=== PATIENT | male | born 1945 | race Caucasian/White ===

== ENCOUNTER 2021-05-21 11:34 | Observation (INO) ==
[2021-05-21 11:50] VITALS: BMI 22.4
[2021-05-21] MEDS ORDERED: NS 1000 ML 1,000 ML IV ONE (12:18)
--- NOTE | 2021-05-21 12:18 | DR.GENAD ---
HPI Time Seen Time Seen by Provider: 05/21/21 12:07 Complaint/Symptoms Chief Complaint Doctors Comments: 75 y/o male not doing well over the past few weeks. Started with lumps in his neck. Had a CT thru his PCP, Dr. Wise, being referred to ENT for biopsy. Developed LLE numbness 2 weeks ago, has persisted. Had a CT of the head for that, no results known by pt. Now with RLE pain, for several days. + sharp, constant, does not radiate. Worse with moving, ambulation. LLE numbness persists. Having difficulty in ambulation. + low back pain. Denies bowel or bladder incontinence. Has had dramatic weight loss over the past month. + smoker. Nurses notes reviewed Nurses Notes Review: Yes Source History Provided: Patient and Family Member Mode of Arrival Mode of Arrival: Ambulatory PMH PMH Past Surgical History: Yes ROS Review of Systems Constitutional: Weakness, Loss of Appetite and Other (weight loss) Eyes: No Symptoms Reported ENTM: No Symptoms Reported Respiratoy: Non-Productive Cough; negative Short of Breath Cardiovascular: No Symptoms Reported Gastrointestinal/Abdominal: No Symptoms Reported Genitourinary: No Symptoms Reported Neurological: Paresthesia (LLE) and Weakness (both lower exts) Musculoskeletal: Back Pain, Right and Leg Integumentary: No Symptoms Reported Hematologic/Lymphatic: No Symptoms Reported Endocrine: No Symptoms Reported Psychiatric: No Symptoms Reported All Other Systems: Reviewed and Negative PE Vital Signs Vitals: Temperature 97.6 F Pulse Rate 76 Respiratory Rate 22 Blood Pressure 122/57 O2 Sat by Pulse Oximetry 98 General Limitations: No Limitations General Appearance: Alert and In No Apparent Distress Head Head Exam: Normal Inspection, Atraumatic and Normocephalic Eyes Eye exam: Normal Appearance ENT ENT Exam: Normal Exam Neck Neck Exam: Other (+ several tender nodules of anterior neck, right > left) Chest Chest Inspection: Normal Inspection Respiratory Respiratory Exam: Normal Lung Sounds Bilat; negative Accessory Muscle Use and Respiratory Distress Respiratory Exam: Bilateral: Clear to Auscultation Cardiovascular Cardiovascular Exam: Regular Rate, Normal Rhythm and Normal Heart Sounds Abdominal Exam Abdominal Exam: Normal Inspection, Normal Bowel Sounds and Soft; negative Tenderness Extremities Extremities Exam: Normal Inspection; negative Edema Back Back Exam: Normal Inspection and Vertebral Tenderness (lumbar region) Neurologic Neurological Exam: Alert, Oriented X3, CN II-XII Intact and Other (+ bilateral lower ext weakness. Can lift off bed, maintain off bed with some drift. Decreased ROM of bilateral ankles/toes. + pulses intact. Decreased tactile sensation of LLE ) Psychiatric Psychiatric Exam: Normal Affect Skin Skin Exam: Warm and Dry MDM Differential Diagnosis Differential Diagnosis: metastatic ca, degenerative disc disease, spinal stenosis, electrolyte abn COURSE Treatment Treatment: 75 y/o male worsening over past several weeks. Reportedly has neck masses that need biopsy. Then numbness of LLE, then pain of RLE, + difficulty walking. W/u initiated. 1502 - Ct chest with contrast shows multiple enlarged lymph nodes, R suprahilar mass, R > L pleural effusion. CT lumbar without obvious mets, + severe degenerative changes. Discussed with his attending, Dr Wise. Will admit the pt, start steroid therapy. ROR Labs Reviewed Laboratory Results Reviewed?: Yes Result Diagrams: 05/21/21 12:05/21/21 12: Laboratory: WBC 8.9 X10^3/uL (3.6-10.0) 05/21/21 12: RBC 2.69 X10^6/uL (4.7-6.0) L 05/21/21 12: Hgb 8.6 g/dL (13.5-18.0) L 05/21/21 12: Hct 25.4 % (42.0-54.0) L 05/21/21 12: MCV 94.3 fL (80.0-100.0) 05/21/21 12: MCH 32.0 pg (27.0-34.0) 05/21/21 12: MCHC 34.0 g/dL (33.0-35.0) 05/21/21 12: RDW 16.7 % (11.6-16.5) H 05/21/21 12: Plt Count 316 X10^3/uL (150.0-450.0) 05/21/21 12: MPV 7.9 fL (7.4-11.0) 05/21/21 12: Neut % (Auto) 74.7 % (42.0-75.0) 05/21/21 12: Lymph % (Auto) 10.0 % (21.0-51.0) L 05/21/21 12:27 [place] % (Auto) 11.9 % (0.0-13.0) 05/21/21 12:27 Eos % (Auto) 2.3 % (0.9-2.9) 05/21/21 12:27 Baso % (Auto) 1.1 % (0.2-1.0) H 05/21/21 12:27 Neut # (Auto) 6.7 x10^3/uL (2.2-4.8) H 05/21/21 12:27 Lymph # (Auto) 0.9 X10^3/uL (1.3-2.9) L 05/21/21 12:27 [place] # (Auto) 1.1 x10^3/uL (0.3-0.8) H 05/21/21 12:27 Eos # (Auto) 0.2 x10^3/uL (0.0-0.2) 05/21/21 12:27 Baso # (Auto) 0.1 X10^3/uL (0.0-0.1) 05/21/21 12:27 Absolute Nucleated RBC 0.0 /100WBC 05/21/21 12:27 Sodium 135 mmol/L (136-145) L 05/21/21 12:27 Corrected Sodium TNP 05/21/21 12:27 Potassium 4.3 mmol/L (3.5-5.1) 05/21/21 12:27 Chloride 102 mmol/L (98-107) 05/21/21 12:27 Carbon Dioxide 24.4 mmol/L (21-32) 05/21/21 12:27 BUN 30 mg/dL (7-18) H 05/21/21 12:27 Creatinine 0.95 mg/dL (0.70-1.30) 05/21/21 12:27 Est GFR (MDRD) Af Amer > 60 (>60) 05/21/21 12:27 Est GFR (MDRD) Non-Af > 60 (>60) 05/21/21 12:27 Glucose 103 mg/dL (65-99) H 05/21/21 12:27 Calcium 8.8 mg/dL (8.5-10.1) 05/21/21 12:27 Corrected Calcium 9.8 mg/dL (8.5-10.1) 05/21/21 12:27 Total Bilirubin 0.60 mg/dL (0.2-1.0) 05/21/21 12:27 AST 17 Units/L (15-37) 05/21/21 12:27 ALT 8 Units/L (12-78) L 05/21/21 12:27 Alkaline Phosphatase 51 Units/L (46-116) 05/21/21 12:27 Creatine Kinase 41 Units/L (39-308) 05/21/21 12:27 CK-MB (CK-2) < 1.0 ng/mL (0-4.0) 05/21/21 12:27 CK/CKMB % Calc 2.4 % (<4) 05/21/21 12:27 Troponin I 0.04 ng/mL (0-1.5) 05/21/21 12:27 Total Protein 7.2 g/dL (6.4-8.2) 05/21/21 12: Albumin 2.8 g/dL (3.4-5.0) L 05/21/21 12:27 Globulin 4.4 g/dL (2.5-4.5) 05/21/21 12:27 Albumin/Globulin Ratio 0.6 Ratio (1.1-2.1) L 05/21/21 12: Lipase 49 Units/L (73-393) L 05/21/21 12:27 Other Results Comments: + anemia 8.6 XRAY XRAY Interpreted by: Both X-ray Results: CXR - with increase dmarking of the R side concerning for neoplasm, + R pleural effusion. CT chest with multiple enlarged nodes, R suprahilar mass, pleural effusions, R > L. Opioid Opioid Risk Tool Total: 0 Total Score Risk Category: Low Risk Copyright: Burt BURK predicting aberrant behaviors Diagnosis Discharge Problem: Metastatic lung carcinoma Qualifiers: Laterality: right Qualified Code(s): C78.01 - Secondary malignant neoplasm of right lung
[2021-05-21] MEDS ORDERED: NS 1000 ML 1,000 ML ONE (12:22)
[2021-05-21 12:47] LABS: BASOPHILS # (AUTO) 0.1 X10^3/uL (0.0-0.1); BASOPHILS % (AUTO) 1.1 % (0.2-1.0); EOSINOPHILS # (AUTO) 0.2 x10^3/uL (0.0-0.2); EOSINOPHILS % (AUTO) 2.3 % (0.9-2.9); HEMATOCRIT 25.4 % (42.0-54.0); HEMOGLOBIN 8.6 g/dL (13.5-18.0); LYMPHOCYTES # (AUTO) 0.9 X10^3/uL (1.3-2.9); MEAN CORPUSCULAR VOLUME 94.3 fL (80.0-100.0); MEAN PLATELET VOLUME 7.9 fL (7.4-11.0); MONOCYTES # (AUTO) 1.1 x10^3/uL (0.3-0.8); MONOCYTES % (AUTO) 11.9 % (0.0-13.0); NEUTROPHILS # (AUTO) 6.7 x10^3/uL (2.2-4.8); NEUTROPHILS % (AUTO) 74.7 % (42.0-75.0); PLATELET COUNT 316 X10^3/uL (150.0-450.0); RED BLOOD COUNT 2.69 X10^6/uL (4.7-6.0); RED CELL DISTRIBUTION WIDTH 16.7 % (11.6-16.5); WHITE BLOOD COUNT 8.9 X10^3/uL (3.6-10.0)
[2021-05-21 13:12] LABS: ALANINE AMINOTRANSFERASE 8 Units/L (12-78); ALBUMIN 2.8 g/dL (3.4-5.0); ALKALINE PHOSPHATASE 51 Units/L (46-116); ASPARTATE AMINO TRANSFERASE 17 Units/L (15-37); BLOOD UREA NITROGEN 30 mg/dL (7-18); CALCIUM 8.8 mg/dL (8.5-10.1); CARBON DIOXIDE 24.4 mmol/L (21-32); CHLORIDE 102 mmol/L (98-107); CKMB % 2.4 % (<4); COR CA(FOR HYPOALB) 9.8 mg/dL (8.5-10.1); CREATINE KINASE 41 Units/L (39-308); CREATINE KINASE MB < 1.0 ng/mL (0-4.0); CREATININE 0.95 mg/dL (0.70-1.30); LIPASE 49 Units/L (73-393); SODIUM 135 mmol/L (136-145); TOTAL PROTEIN 7.2 g/dL (6.4-8.2); TROPONIN I 0.04 ng/mL (0-1.5); eGFR NON BLACK RACES > 60 (>60)
[2021-05-21] MEDS ORDERED: NS 100 ML IV 100 ML ONE (13:30)
[2021-05-21] MEDS ORDERED: SOLU-Medrol 40 MG VIAL IVP ONE (14:43)
--- NOTE | 2021-05-21 14:52 | CT ---
HISTORYSevere low back pain with numbnessSTUDYCT lumbar spine without contrastCOMPARISONNoneNoncontrast CT of the lumbar spine was performed in the axial plane and reconstructed with multiplanar reformats.FINDINGSThere are bibasilar pleural effusions, moderate on the right and small on the left. Aortic and iliac atherosclerotic calcifications are observed. The patient is status post aorto bi-iliac graft placement. Atherosclerotic renal vascular calcifications are also noted. No perivertebral or retroperitoneal fluid collections are identified. Paraspinal muscles are adequately developed. There is mild dextroscoliosis of the thoracolumbar spine which is centered at the level of L1-L2. There is associated advanced degenerative disc disease and endplate spondylosis at this point of abnormal curvature; disc space narrowing with vacuum disc defect is observed at T11-T12, T12-L1, L1-L2 and L2-L3 levels. In the sagittal plane, there is marginal grade 1 retrolisthesis of L2 on L3. Degenerative endplate sclerosis is demonstrated at L2-L3 where there is severe disc space narrowing. The vertebral body heights are adequately maintained. There is no evidence of an acute fracture or pars defect. Additional degenerative findings consist of multilevel facet hypertrophy the coming progressively more conspicuous in the caudal direction. Evaluation of the spinal canal is limited on a noncontrast CT. At L2-3 level, posterior endplate ridging contributes to relative narrowing of the spinal canal. Discogenic degenerative changes with bulging discs and facet hypertrophy contribute to varying degrees of multilevel neural foraminal compromise.IMPRESSIONScoliotic curvature of the thoracolumbar spine affiliated with advanced multilevel degenerative disc disease, spondylosis and facet hypertrophy. See above for complete details.Discogenic degenerative changes and facet hypertrophy contribute to varying degrees of multilevel bilateral neural foraminal compromise, with localized spinal stenosis at L2-3.No acute fracture or posttraumatic subluxation of the lumbar spineBilateral pleural effusions, right greater than left.Electronically signed by: OLGA MCKEON (May 21, 2021 14:50:40)
[2021-05-21] MEDS ORDERED: SOLU-Medrol 40 MG VIAL ONE ×2 (14:56→20:09)
--- NOTE | 2021-05-21 15:00 | CT ---
HISTORYDYSPNEA ON EXERTIONSTUDYCT chest with contrastCOMPARISONNo recent comparison studiesTECHNIQUEAxial CT was performed from the thoracic inlet to the upper abdomen with IV contrast. The axial sequences are reconstructed with multiplaner reformats.FINDINGSThere is multi station lymphadenopathy associated with the lower jugular chain and supraclavicular lymph node stations. This is contiguous with bulky lymphadenopathy associated with the mediastinum and hilar regions of the chest. The axillary regions are spared. For example, confluent sub carinal lymphadenopathy measures at least 4.4 x 2.8 cm. Right hilar lymph node measures 2.8 x 1.7 cm. Left paratracheal lymph nodes measure 2.5 by 2 cm. Right paratracheal lymph node measures 2.3 x 2.6 cm. There is a moderate right-sided pleural effusion and a small left-sided pleural effusion. There is also a small dependent pericardial effusion. The heart size is average. There is evidence of coronary atherosclerosis. Thoracic aorta caliber is average. Atherosclerotic calcifications are also demonstrated within the thoracic aorta. There are no central filling defects of the main, lobar or proximal segmental pulmonary artery branches, although the study was not protocol for thromboembolism evaluation. Endobronchial secretions are demonstrated within the secondary and tertiary bronchi of the right upper lobe. There is mass effect upon the right upper lobe lobar and segmental branches related to a bryce mass in the suprahilar region, image 28, which measures approximately 2.3 x 2.7 cm. Advanced centrilobular emphysematous changes are observed. There is interseptal thickening is demonstrated within the right upper lobe. There is also interlobular septal thickening of the bilateral lung bases, right more so than left. No defined satellite nodules are identified. Subpleural scarring is demonstrated within the anterior margin of the right upper lobe. Within the upper abdomen, there also enlarged retroperitoneal/retrocrural lymph nodes in the periaortic distribution. The adrenal glands remain symmetric in morphology. The imaged portions of the liver enhances normally with no focal lesions within the field of view. Evaluation of the bony structures demonstrates no aggressive osseous lesions. There are findings of advanced multilevel degenerative disc disease and spondylosis of the lower thoracic and upper lumbar spine.IMPRESSIONBulky multi station lymphadenopathy of the lower neck, mediastinum and hilar regions, and superior retroperitoneal space. Findings are highly concerning for an underlying malignancy, such as lymphoma or metastatic disease related to central bronchogenic carcinoma, for example. These lymph nodes may be accessible to biopsy via bronchoscopy.Right hilar/suprahilar bryce masses produce mass effect upon the lobar and segmental bronchi of the right upper lobe, resulting in accumulation of endobronchial secretions within this distributionAdvanced emphysemaInterstitial congestion of the right lung more so than left lung may be due to lymphangitic carcinomatosis or asymmetric edemaModerate right-sided pleural effusion with passive atelectasis. Trace left-sided pleural effusion.Small pericardial effusion.Radiation dose reduction was achieved through individualized adjustment of kVP and/or mA, through adaptive statistical iterative reconstruction, and/or through automated tube current modulation.Electronically signed by: OLGA MCKEON (May 21, 2021 14:58:18)
--- NOTE | 2021-05-21 15:11 | RAD ---
HISTORYDIFFICULTY BREATHINGSTUDYCHEST, 1 VIEWCOMPARISONNo recent comparison studiesTECHNIQUEPortable chest x-rayFINDINGSAsymmetric interstitial prominence of the right lung is observed. There is a small to moderate right-sided pleural effusion and a small left-sided pleural effusion. The heart size is normal. There is right hilar asymmetry for which lymphadenopathy is considered.IMPRESSIONAsymmetric interstitial prominence of the right lung. Differential considerations include asymmetric edema or lymphangitic carcinomatosis.Right hilar asymmetry for which central bronchogenic or bryce mass must be considered. Follow-up CT is suggestedBilateral pleural effusions, right greater than leftEmphysematous changes suspected within the lung apices.Electronically signed by: OLGA MCKEON (May 21, 2021 15:09:44)
[2021-05-21] MEDS ORDERED: PERCOCET TAB 5/325 MG ONE (16:28)
[2021-05-21] MEDS: PERCOCET TAB 5/325 MG PO PRN ×2 (16:30→23:33)
--- NOTE | 2021-05-21 19:38 | DR.H&P ---
H&P - History & Physical for Day of: H&P Date: 05/21/21 - Chief Complaint Chief Complaint: LOWER EXTREMITY WEAKNESS, PAIN, SHORTNESS OF BREATH, DIFFICULTY AMBULATING, LOWER BACK PAIN - History of Present Illness History of Present Illness: IS A 75 YEAR OLD PATIENT OF OURS. HE PRESENTED TO THE ER WITH COMPALINTS OF GENERALIZED WEAKNESS, SHORTNESS OF BREATH, LLE NUMBNESS, RLE PAIN, DIFFICULTY AMBULATING, AND LOWER BACK PAIN. HE HAS HAD DRAMATIC WEIGHT LOSS OVER THE PAST MONTH. HE DENIES BOWEL OR BLADDER INCONTINENCE. PATIENT REPORTS FINDING LUMPS IN HIS NECK ABOUT A MONTH AGO. PAIN TO RLE IS DESCRIBED CONSTANT, SHARP, AND IS RATED A 6/10. PATIENT DOES ADMIT TO SMOKING DAILY. HE HAD A SOFT TISSUE NECK CT WHICH REVEALED LEFT SUPRACLAVICULAR LYMPHADENOPATHY, SUGGESTING MALIGNANCY, POSSIBLY LYMPHOMA. HE ALSO HAD A BRAIN CT ON 05/15 DUE TO LOWER EXTREMITY NUMBNESS. IT REVEALED: Indeterminate rounded hypodensities in the left frontal lobe for which underlying masses cannot be excluded. MRI with and without contrast recommended for further evaluation. Cerebral volume loss and nonspecific white matter changes likely due to microvascular disease. No intracranial hemorrhage. PATIENT HAS BEEN REFERRED TO ENT FOR BIOPSY OF NODULES IN NECK, BUT HAS NOT SEEN THEM YET. ON ARRIVAL TO THE ER, VITALS WERE 97.6-84-22-97%-120/57. LABS WERE OBTAINED. ABNORMAL LAB VALUES INCLUDE THE FOLLOWING: RBC 2.69, HGB 8.6, HCT 25.4, SODIUM 135, BUN 30, GLUCOSE 103, ALT 8, ALBUMIN 2.8, LIPASE 49. COVID, INFLUENZA, AND RSV NEGATIVE. A CHEST XRAY WAS OBTAINED AND REVEALED: Asymmetric interstitial prominence of the right lung. Differential considerations include asymmetric edema or lymphangitic carcinomatosis. Right hilar asymmetry for which central bronchogenic or bryce mass must be considered. Follow-up CT IS suggested. Bilateral pleural effusions, right greater than left. Emphysematous changes suspected within the lung apices. A CHEST CT WAS OBTAINED AND REVEALED: Bulky multi station lymphadenopathy of the lower neck, mediastinum and hilar regions, and superior retroperitoneal space. Findings are highly concerning for an underlying malignancy, such as lymphoma or metastatic disease related to central bronchogenic carcinoma, for example. These lymph nodes may be accessible to biopsy via bronchoscopy. Right hilar/suprahilar bryce masses produce mass effect upon the lobar and segmental bronchi of the right upper lobe, resulting in accumulation of endobronchial secretions within this distribution. Advanced emphysema. Interstitial congestion of the right lung more so than left lung may be due to lymphangitic carcinomatosis or asymmetric edema. Moderate right-sided pleural effusion with passive atelectasis. Trace left-sided pleural effusion. Small pericardial effusion. A LUMBAR SPINE CT WAS OBTAINED AND REVEALED: Sc oliotic curvature of the thoracolumbar spine affiliated with advanced multilevel degenerative disc disease, spondylosis and facet hypertrophy. Discogenic degenerative changes and facet hypertrophy contribute to varying degrees of multilevel bilateral neural foraminal compromise, with localized spinal stenosis at L2-3. No acute fracture or posttraumatic subluxation of the lumbar spine. Bilateral pleural effusions, right greater than left. IN THE ER, HE WAS GIVEN A NORMAL SALINE BOLUS, SOLU-MEDROL 80MG IV X 1 DOSE. HE WAS ADMITTED TO THE HOSPITAL FOR FURTHER EVALUATION AND TREATMENT OF METASTATIC LUNG CANCER, LOWER EXTREMITY WEAKNESS, ANEMIA. HE WAS STARTED ON SOLU-MEDROL 80MG IV Q8H, PERCOCET 5/325 1.5 TAB PO TID PRN, PULMICORT NEBS BID, AND HIS HOME MEDICATIONS OF ASPIRIN, PLAVIX, NEURONTIN, LOPRESSOR, ZOCOR, FLOMAX, AND EFFEXOR WERE RESUMED. WE WILL FOLLOW UP WITH AM LABS AND HAVE PT EVALUATE HIM IN THE MORNING. TIME SPENT ON CLINICAL ASSESSMENT, REVIEWING LABS AND IMAGING, DECISION MAKING, AND DOCUMENTATION GREATER THAN 75 MINUTES. - Past Medical History Past Medical History: COPD, Dyslipidemia, Hypertension - Past Surgical History Surgical History: Angioplasty/Stents, Other - Family History Family Medical History: Coronary Artery Disease - Social History Does patient currently use any type of tobacco product: Yes Have you used tobacco products in the last 12 months: Yes Type of Tobacco Use: Cigarettes Does any household member use tobacco: No Alcohol Use: Occasionally Drug Use: None - Medications Home Medications: No Known Drug Allergies Allergy (Verified 05/21/21 14:27) CONTINUE taking the following medications ascorbic acid (vitamin C) [Vitamin C] 500 mg PO DAILY 05/21/21 [History] aspirin 81 mg PO DAILY 05/21/21 [History] budesonide-formoterol [Symbicort] 1 inh INHALATION BID 05/21/21 [History] cholecalciferol (vitamin D3) [Vitamin D3] 25 mcg PO DAILY 05/21/21 [History] clopidogrel 75 mg PO DAILY 05/21/21 [History] coenzyme Q10 [Co Q-10] 400 mg PO DAILY 05/21/21 [History] fluticasone propionate 1 spray INTRANASAL BID 05/21/21 [History] gabapentin 300 mg PO HS 05/21/21 [History] metoprolol tartrate 25 mg PO BID 05/21/21 [History] omega 6-mxr-dro-fish oil [Fish Oil] 1 cap PO DAILY 05/21/21 [History] oxycodone-acetaminophen 1 tab PO TID PRN 05/21/21 [History] simvastatin 40 mg PO HS 05/21/21 [History] tamsulosin 0.4 mg PO HS 05/21/21 [History] tramadol 50 mg PO Q6H PRN 05/21/21 [History] venlafaxine 75 mg PO DAILY 05/21/21 [History] vitamin [id number]-[id number] acid 1 phuc SUBLINGUAL DAILY 05/21/21 [History] - Review of Systems Constitutional: Weakness Eyes: No Symptoms Reported Respiratory: Shortness of Breath Cardiovascular: No Symptoms Reported Gastrointestinal: No Symptoms Reported Genitourinary: No Symptoms Reported Musculoskeletal: See HPI, Back Pain, Leg Pain Skin: No Symptoms Reported Neurological: Weakness - Physical Exam Vital Signs: Temperature 98.2 F Pulse Rate [Left Radial] 75 Pulse Rate 66 Respiratory Rate 20 Blood Pressure [Left Arm] 147/70 Blood Pressure 137/65 O2 Sat by Pulse Oximetry 97 Oriented: Normal Eyes: Normal Ear: Normal Nose: Normal Throat: Normal Respiratory: Diminished Throughout Cardiovascular: Normal : Normal Auscultation: Bowel Sounds: Normal Palpation: Normal Tenderness: Normal Skin: Normal Musculoskeletal: Right, Left, Leg, Back:Lumbar, Tender, Sensory Deficit Psychiatric: Normal Mood Description: Calm Affect: Normal Speech Pattern: Clear - Assessment/Plan (1) Metastatic lung carcinoma Qualifiers: Laterality: right Qualified Code(s): C78.01 - Secondary malignant neoplasm of right lung Status: Acute Plan: ADMIT, SOLU-MEDROL 80MG IV Q8H, PERCOCET 5/325 1.5 TAB PO TID PRN, PULMICORT NEBS BID, AND HIS HOME MEDICATIONS OF ASPIRIN, PLAVIX, NEURONTIN, LOPRESSOR, ZOCOR, FLOMAX, AND EFFEXOR WERE RESUMED. (2) Anemia Qualifiers: Anemia type: unspecified type Qualified Code(s): D64.9 - Anemia, unspecifi ed Status: Acute (3) Lower back pain Qualifiers: Chronicity: acute Back pain laterality: unspecified Sciatica presence: without sciatica Qualified Code(s): M54.5 - Low back pain Status: Acute (4) Lower extremity weakness Qualifiers: Laterality: bilateral Qualified Code(s): R29.898 - Other symptoms and signs involving the musculoskeletal system Status: Acute - Allergies Allergies/Adverse Reactions: Allergies Allergy/AdvReac Type Severity Reaction Status Date / Time No Known Drug Allergies Allergy Verified 05/21/21 14:27
[2021-05-21] MEDS ORDERED: PULMICORT NEB TX 0.5 MG NEB ONE (19:52)
[2021-05-21] MEDS: NEURONTIN CAP 300 MG PO SCH (20:41)
[2021-05-21] MEDS: LOPRESSOR TAB 25 MG PO SCH (20:41)
[2021-05-21] MEDS: ZOCOR TAB 40 MG PO SCH (20:41)
[2021-05-21] MEDS: FLOMAX PO SCH (20:41)
[2021-05-21] MEDS: SOLU-Medrol 40 MG VIAL IVP SCH (21:00)
[2021-05-21] MEDS ORDERED: SYMBICORT INH 160/4.5 mcg IN SCH (21:00)
[2021-05-21] MEDS: PULMICORT NEB TX 0.5 MG NEB SCH (21:16)
[2021-05-22] MEDS: SOLU-Medrol 40 MG VIAL IVP SCH ×3 (05:00→21:00)
[2021-05-22 06:26] LABS: BASOPHILS % (AUTO) 0.2 % (0.2-1.0); HEMATOCRIT 26.2 % (42.0-54.0); HEMOGLOBIN 8.9 g/dL (13.5-18.0); LYMPHOCYTES # (AUTO) 0.4 X10^3/uL (1.3-2.9); LYMPHOCYTES % (AUTO) 7.7 % (21.0-51.0); MEAN CORPUSCULAR HEMOGLOBIN 32.6 pg (27.0-34.0); MEAN CORPUSCULAR HGB CONC 34.1 g/dL (33.0-35.0); MEAN CORPUSCULAR VOLUME 95.8 fL (80.0-100.0); MEAN PLATELET VOLUME 8.4 fL (7.4-11.0); MONOCYTES # (AUTO) 0.2 x10^3/uL (0.3-0.8); MONOCYTES % (AUTO) 3.3 % (0.0-13.0); NEUTROPHILS # (AUTO) 4.7 x10^3/uL (2.2-4.8); NEUTROPHILS % (AUTO) 88.8 % (42.0-75.0); PLATELET COUNT 310 X10^3/uL (150.0-450.0); RED BLOOD COUNT 2.73 X10^6/uL (4.7-6.0); RED CELL DISTRIBUTION WIDTH 16.4 % (11.6-16.5); WHITE BLOOD COUNT 5.2 X10^3/uL (3.6-10.0)
[2021-05-22 06:40] LABS: ALANINE AMINOTRANSFERASE 8 Units/L (12-78); ALBUMIN 2.6 g/dL (3.4-5.0); ALKALINE PHOSPHATASE 51 Units/L (46-116); ASPARTATE AMINO TRANSFERASE 17 Units/L (15-37); BLOOD UREA NITROGEN 31 mg/dL (7-18); CALCIUM 8.9 mg/dL (8.5-10.1); CARBON DIOXIDE 22.8 mmol/L (21-32); CHLORIDE 105 mmol/L (98-107); COR NA(FOR HYPERGLY) 140 mmol/L (136-145); CREATININE 1.01 mg/dL (0.70-1.30); SODIUM 139 mmol/L (136-145); TOTAL PROTEIN 7.2 g/dL (6.4-8.2); eGFR NON BLACK RACES > 60 (>60)
[2021-05-22] MEDS: PULMICORT NEB TX 0.5 MG NEB SCH ×2 (08:40→21:34)
[2021-05-22] MEDS: PLAVIX PO SCH (09:01)
[2021-05-22] MEDS: ASPIRIN 81 MG CHEWTAB PO SCH (09:01)
[2021-05-22] MEDS: EFFEXOR XR 75 MG CAP 24-HR PO SCH (09:01)
[2021-05-22] MEDS: LOPRESSOR TAB 25 MG PO SCH ×2 (09:02→20:50)
[2021-05-22] MEDS: LEVAQUIN PREMIX IV 500 MG 500 MG/100 ML BAG IV SCH (12:37)
--- NOTE | 2021-05-22 16:18 | MRI ---
HISTORYMETASTATIC DISEASE; 15CC MULTIHANCESTUDYBRAIN W W/O CONCOMPARISONCT head dated 05/15/2021.TECHNIQUEMultiplanar multi sequences images through the brain were performed with and without intravenousFINDINGSThe ventricles are symmetric. There are punctate areas of high signal on diffusion along the left precentral gyrus and in the left frontal lobe and tiny in the cortex of the left temporal occipital region at the watershed zone. These areas demonstrate no significant low signal on ADC map and it could correspond with more than 10 days small infarcts. There is high signal on diffusion.FLAIR images demonstrate mild high signal high signal on FLAIR in the previously described areas. There is no evidence of white matter disease. There is minimal periventricular and pontine high signal. No sellar masses. The cervicocranial junction is unremarkable, no nasopharyngeal masses. The mastoid cells and included paranasal sinuses are clear. No orbital masses. The main arterial and venous flow voids are present, the temporomandibular condyles demonstrate mild sclerosis in the left. No abnormal signal in the skullbase and the calvarium.After the administration of contrast, there is no evidence of abnormal intraparenchymal or leptomeningeal enhancement. There is symmetry of the cavernous sinus. No evidence of metastatic disease.There is no abnormal intraparenchymal susceptibility artifact.IMPRESSIONSmall areas of high signal on diffusion in the left precentral gyrus, left posterior watershed zone and in the left frontal lobe white matter could represent more than 10 days small infarcts. It could be related proximal decreased flow infarcts, correlation with bilateral carotid ultrasound is recommended to rule out stenosis in the left ICANo evidence of metastatic disease.Electronically signed by: Leatha Carrillo (May 22, 2021 16:16:12)
[2021-05-22] MEDS: PERCOCET TAB 5/325 MG PO PRN (19:25)
[2021-05-22] MEDS: ZOCOR TAB 40 MG PO SCH (20:50)
[2021-05-22] MEDS: FLOMAX PO SCH (20:50)
[2021-05-22] MEDS: NEURONTIN CAP 300 MG PO SCH (20:50)
[2021-05-23] MEDS: PERCOCET TAB 5/325 MG PO PRN ×2 (04:56→19:39)
[2021-05-23] MEDS: SOLU-Medrol 40 MG VIAL IVP SCH ×3 (05:00→21:18)
[2021-05-23 06:23] LABS: BASOPHILS % (AUTO) 0.1 % (0.2-1.0); HEMATOCRIT 24.4 % (42.0-54.0); HEMOGLOBIN 8.2 g/dL (13.5-18.0); LYMPHOCYTES # (AUTO) 0.5 X10^3/uL (1.3-2.9); LYMPHOCYTES % (AUTO) 4.2 % (21.0-51.0); MEAN CORPUSCULAR HGB CONC 33.6 g/dL (33.0-35.0); MEAN CORPUSCULAR VOLUME 95.3 fL (80.0-100.0); MEAN PLATELET VOLUME 8.1 fL (7.4-11.0); MONOCYTES # (AUTO) 0.6 x10^3/uL (0.3-0.8); MONOCYTES % (AUTO) 5.4 % (0.0-13.0); NEUTROPHILS # (AUTO) 10.2 x10^3/uL (2.2-4.8); NEUTROPHILS % (AUTO) 90.3 % (42.0-75.0); PLATELET COUNT 337 X10^3/uL (150.0-450.0); RED BLOOD COUNT 2.56 X10^6/uL (4.7-6.0); RED CELL DISTRIBUTION WIDTH 16.4 % (11.6-16.5); WHITE BLOOD COUNT 11.3 X10^3/uL (3.6-10.0)
[2021-05-23 06:47] LABS: ALANINE AMINOTRANSFERASE 10 Units/L (12-78); ALBUMIN 2.7 g/dL (3.4-5.0); ALKALINE PHOSPHATASE 46 Units/L (46-116); ASPARTATE AMINO TRANSFERASE 18 Units/L (15-37); BLOOD UREA NITROGEN 41 mg/dL (7-18); CALCIUM 8.9 mg/dL (8.5-10.1); CARBON DIOXIDE 21.1 mmol/L (21-32); CHLORIDE 105 mmol/L (98-107); COR CA(FOR HYPOALB) 9.9 mg/dL (8.5-10.1); COR NA(FOR HYPERGLY) 139 mmol/L (136-145); CREATININE 0.88 mg/dL (0.70-1.30); SODIUM 138 mmol/L (136-145); TOTAL PROTEIN 6.8 g/dL (6.4-8.2); eGFR NON BLACK RACES > 60 (>60)
[2021-05-23 07:27] LABS: METAMYELOCYTES % 3; MYELOCYTES % 1; PLATELET MORPHOLOGY COMMENT NORMAL (NORMAL)
[2021-05-23] MEDS: LOPRESSOR TAB 25 MG PO SCH ×2 (08:08→21:19)
[2021-05-23] MEDS: LEVAQUIN PREMIX IV 500 MG 500 MG/100 ML BAG IV SCH (08:12)
[2021-05-23] MEDS: PLAVIX PO SCH (08:12)
[2021-05-23] MEDS: ASPIRIN 81 MG CHEWTAB PO SCH (08:12)
[2021-05-23] MEDS: EFFEXOR XR 75 MG CAP 24-HR PO SCH (08:12)
[2021-05-23] MEDS: PULMICORT NEB TX 0.5 MG NEB SCH ×2 (10:15→20:51)
[2021-05-23] MEDS ORDERED: ULTRAM PO PRN (10:56)
[2021-05-23] MEDS ORDERED: COENZYME Q10 400 MG PO SCH (11:00)
[2021-05-23] MEDS: FLONASE NASAL SPRAY ENOSTRIL SCH ×2 (12:16→21:20)
[2021-05-23] MEDS: VITAMIN C PO SCH (12:17)
[2021-05-23] MEDS: VITAMIN D3 25 mcg (1,000 UNITS) PO SCH (12:17)
[2021-05-23] MEDS: LOVAZA PO SCH (12:17)
--- NOTE | 2021-05-23 12:51 | PCM.PROG ---
Progress Note - Progress Note for Day of Date of Exam: 05/22/21 - Subjective Subjective: WAS ADMITTED FOR TREATMENT OF METASTATIC LUNG CARCINOMA, ANEMIA, INTRACTABLE BACK PAIN, AND LOWER EXTREMITY WEAKNESS. METASTATIC DISEASE IS NEWLY DIAGNOSED. PATIENT HAS NOT YET SEEN ONCOLOGY OR THE ENT FOR NODULES FOUND IN THE NECK. TODAY, HE IS ALERT AND ORIENTED, LYING IN BED ON MORNING ROUNDS. HE CONTINUES WITH COMPLAINTS OF SHORTNESS OF BREATH AND WEAKNESS. HE DOES ADMIT TO SLIGHT IMPROVEMENT IN SYMPTOMS SINCE YESTERDAY. ON EXAMINATION, HEART IS REGULAR IN RATE AND RHYTHM. BILATERAL LUNGS ARE NOTED TO HAVE DIMINISHED LUNG SOUNDS THROUGHOUT. ABDOMEN IS ROUND, SOFT, AND NON-TENDER WITH NORMAL BOWEL SOUNDS NOTED IN ALL QUADRANTS. HIS VITALS THIS MORNING ARE: 97.6-77-22-94%-114/61. LABS WERE OBTAINED. ABNORMAL LAB VALUES INCLUDE THE FOLLOWING: RBC 2.73, HGB 8.9, HCT 26.2, BUN 31, GLUCOSE 156, ALT 8, ALBUMIN 2.6, GLOBULIN 4.6. HE IS CURRENTLY RECEIVING SOLU-MEDROL 80MG IV Q8H, PERCOCET 5/325 1.5 TAB PO TID PRN, PULMICORT NEBS BID, AND HIS HOME MEDICATIONS OF ASPIRIN, PLAVIX, NEURONTIN, LOPRESSOR, ZOCOR, FLOMAX, AND EFFEXOR WERE RESUMED. TODAY, WE WILL OBTAIN A BRAIN MRI WITH AND WITHOUT CONTRAST TO RULE OUT METASTATIC DISEASE OF THE BRAIN. WE WILL ALSO ADD LEVAQUIN TO COVER FOR ANY INFECTIOUS PROCESS. OTHERWISE, WE PLAN TO FOLLOW UP WITH AM LABS AND CONTINUE TO MONITOR. WE WILL SET UP AN OUTPATIENT APPOINTMENT WITH , ONCOLOGIST. TIME SPENT ON CLINICAL ASSESSMENT, REVIEWING LABS AND IMAGING, DECISION MAKING, AND DOCUMENTATION GREATER THAN 45 MINUTES. - Past Medical Family Social History Past Med/Fam/Surg Hx: No changes since H&P Allergies: Allergies No Known Drug Allergies Allergy (Verified 05/21/21 14:27) - Review of Systems ROS: No change since H&P - Vital Signs and I&O's Vital Signs: Temperature 97.4 F Pulse Rate [Left Radial] 63 Pulse Rate 62 Respiratory Rate 20 Blood Pressure [Left Arm] 115/57 Blood Pressure 137/65 O2 Sat by Pulse Oximetry 96 Intake and Output: Intake & Output 05/21/21 05/22/21 05/23/21 05/24/21 11:59 11:59 11:59 11:59 Intake Total 2065 1633 / 1633 Balance 2065 1633 / 1633 - Physical Exam Oriented: Normal Eyes: Normal Ear: Normal Nose: Normal Throat: Normal Respiratory: Generalized, Diminished Cardiovascular: Normal : Normal Auscultation: Bowel Sounds: Normal Palpation: Normal Tenderness: Normal Skin: Normal Musculoskeletal: Right, Left, Leg, Back:Lumbar, Tender, Sensory Deficit Psychiatric: Normal Mood Description: Calm Affect: Normal Speech Pattern: Clear - Laboratory and Diagnostics Result Diagrams: 05/23/21 05:45 05/23/21 05:45 Labs: Laboratory WBC 11.3 X10^3/uL (3.6-10.0) H 05/23/21 05:45 RBC 2.56 X10^6/uL (4.7-6.0) L 05/23/21 05:45 Hgb 8.2 g/dL (13.5-18.0) L 05/23/21 05:45 Hct 24.4 % (42.0-54.0) L 05/23/21 05:45 MCV 95.3 fL (80.0-100.0) 05/23/21 05:45 MCH 32.0 pg (27.0-34.0) 05/23/21 05:45 MCHC 33.6 g/dL (33.0-35.0) 05/23/21 05:45 RDW 16.4 % (11.6-16.5) 05/23/21 05:45 Plt Count 337 X10^3/uL (150.0-450.0) 05/23/21 05:45 Plt Count Comment Adequate (ADEQUATE) 05/23/21 05:45 MPV 8.1 fL (7.4-11.0) 05/23/21 05:45 Neut % (Auto) 90.3 % (42.0-75.0) H 05/23/21 05:45 Lymph % (Auto) 4.2 % (21.0-51.0) L 05/23/21 05:45 [place] % (Auto) 5.4 % (0.0-13.0) 05/23/21 05:45 Eos % (Auto) 0.0 % (0.9-2.9) L 05/23/21 05:45 Baso % (Auto) 0.1 % (0.2-1.0) L 05/23/21 05:45 Neut # (Auto) 10.2 x10^3/uL (2.2-4.8) H 05/23/21 05:45 Lymph # (Auto) 0.5 X10^3/uL (1.3-2.9) L 05/23/21 05:45 [place] # (Auto) 0.6 x10^3/uL (0.3-0.8) 05/23/21 05:45 Eos # (Auto) 0.0 x10^3/uL (0.0-0.2) 05/23/21 05:45 Baso # (Auto) 0.0 X10^3/uL (0.0-0.1) 05/23/21 05:45 Absolute Nucleated RBC 0.2 /100WBC 05/23/21 05:45 Total Counted 100 05/23/21 05:45 Neutrophils % (Manual) 86 % (39-76) H 05/23/21 05:45 Lymphocytes % (Manual) 5 % (13-43) L 05/23/21 05:45 Monocytes % (Manual) 5 % (4-9) 05/23/21 05:45 Metamyelocytes % 3 05/23/21 05:45 Myelocytes % 1 05/23/21 05:45 Plt Morphology Comment Normal (NORMAL) 05/23/21 05:45 RBC Morphology Normal (NORMAL) 05/23/21 05:45 Sodium 138 mmol/L (136-145) 05/23/21 05:45 Corrected Sodium 139 mmol/L (136-145) 05/23/21 05:45 Potassium 4.5 mmol/L (3.5-5.1) 05/23/21 05:45 Chloride 105 mmol/L (98-107) 05/23/21 05:45 Carbon Dioxide 21.1 mmol/L (21-32) 05/23/21 05:45 BUN 41 mg/dL (7-18) H 05/23/21 05:45 Creatinine 0.88 mg/dL (0.70-1.30) 05/23/21 05:45 Est GFR (MDRD) Af Amer > 60 (>60) 05/23/21 05:45 Est GFR (MDRD) Non-Af > 60 (>60) 05/23/21 05:45 Glucose 142 mg/dL (65-99) H 05/23/21 05:45 Calcium 8.9 mg/dL (8.5-10.1) 05/23/21 05:45 Corrected Calcium 9.9 mg/dL (8.5-10.1) 05/23/21 05:45 Total Bilirubin 0.50 mg/dL (0.2-1.0) 05/23/21 05:45 AST 18 Units/L (15-37) 05/23/21 05:45 ALT 10 Units/L (12-78) L 05/23/21 05:45 Alkaline Phosphatase 46 Units/L (46-116) 05/23/21 05:45 Creatine Kinase 41 Units/L (39-308) 05/21/21 12:27 CK-MB (CK-2) < 1.0 ng/mL (0-4.0) 05/21/21 12:27 CK/CKMB % Calc 2.4 % (<4) 05/21/21 12:27 Troponin I 0.04 ng/mL (0-1.5) 05/21/21 12:27 Total Protein 6.8 g/dL (6.4-8.2) 05/23/21 05:45 Albumin 2.7 g/dL (3.4-5.0) L 05/23/21 05:45 Globulin 4.1 g/dL (2.5-4.5) 05/23/21 05:45 Albumin/Globulin Ratio 0.7 Ratio (1.1-2.1) L 05/23/21 05:45 Lipase 49 Units/L (73-393) L 05/21/21 12:27 SARS-CoV-2 (PCR) Negative (NEGATIVE) 05/21/21 14:25 Influenza Type A (PCR) Negative (NEGATIVE) 05/21/21 14:25 Influenza Type B (PCR) Negative (NEGATIVE) 05/21/21 14:25 RSV (PCR) Negative (NEGATIVE) 05/21/21 14:25 - Plan (1) Metastatic lung carcinoma Status: Acute Qualifiers: Laterality: right Qualified Code(s): C78.01 - Secondary malignant neoplasm of right lung Plan: SOLU-MEDROL 80MG IV Q8H, LEVAQUIN 500MG IV DAILY, PERCOCET 5/325 1.5 TAB PO TID PRN, PULMICORT NEBS BID, AND HIS HOME MEDICATIONS OF ASPIRIN, PLAVIX, NEURONTIN, LOPRESSOR, ZOCOR, FLOMAX, AND EFFEXOR WERE RESUMED. (2) Anemia Status: Acute Qualifiers: Anemia type: unspecified type Qualified Code(s): D64.9 - Anemia, unspecified (3) Lower back pain Status: Acute Qualifiers: Chronicity: acute Back pain laterality: unspecified Sciatica presence: without sciatica Qualified Code(s): M54.5 - Low back pain (4) Lower extremity weakness Status: Acute Qualifiers: Laterality: bilateral Qualified Code(s): R29.898 - Other symptoms and signs involving the musculoskeletal system
--- NOTE | 2021-05-23 12:55 | PCM.PROG ---
Progress Note - Progress Note for Day of Date of Exam: 05/23/21 - Subjective Subjective: WAS ADMITTED FOR TREATMENT OF METASTATIC LUNG CARCINOMA, ANEMIA, INTRACTABLE BACK PAIN, AND LOWER EXTREMITY WEAKNESS. METASTATIC DISEASE IS NEWLY DIAGNOSED. PATIENT HAS NOT YET SEEN ONCOLOGY OR THE ENT FOR NODULES FOUND IN THE NECK. TODAY, HE IS ALERT AND ORIENTED, LYING IN BED ON MORNING ROUNDS. HE CONTINUES WITH COMPLAINTS OF SHORTNESS OF BREATH AND WEAKNESS. HE DOES ADMIT TO SLIGHT IMPROVEMENT IN SYMPTOMS SINCE YESTERDAY. ON EXAMINATION, HEART IS REGULAR IN RATE AND RHYTHM. BILATERAL LUNGS ARE NOTED TO HAVE DIMINISHED LUNG SOUNDS THROUGHOUT. ABDOMEN IS ROUND, SOFT, AND NON-TENDER WITH NORMAL BOWEL SOUNDS NOTED IN ALL QUADRANTS. HIS VITALS THIS MORNING ARE: 97.9-63-20-94%-99/54. LABS WERE OBTAINED. ABNORMAL LAB VALUES INCLUDE THE FOLLOWING: WBC 11.3, RBC 2.56, HGB 8.2, HCT 24.4, BUN 41, GLUCOSE 142, ALT 10, ALBUMIN 2.7. WE OBTAINED A BRAIN MRI YESTERDAY. IT REVEALED: Small areas of high signal on diffusion in the left precentral gyrus, left posterior watershed zone and in the left frontal lobe white matter could represent more than 10 days small infarcts. It could be related proximal decreased flow infarcts, correlation with bilateral carotid ultrasound is recommended to rule out stenosis in the left ICA. No evidence of metastatic disease. HE IS CURRENTLY RECEIVING SOLU-MEDROL 80MG IV Q8H, LEVAQUIN 500MG IV DAILY, PERCOCET 5/325 1.5 TAB PO TID PRN, PULMICORT NEBS BID, AND HIS HOME MEDICATIONS OF ASPIRIN, PLAVIX, NEURONTIN, LOPRESSOR, ZOCOR, FLOMAX, AND EFFEXOR WERE RESUMED. WE WILL CONTINUE WITH CURRENT PLAN OF CARE TODAY. OTHERWISE, WE PLAN TO FOLLOW UP WITH AM LABS AND CONTINUE TO MONITOR. WE WILL SET UP AN OUTPATIENT APPOINTMENT WITH , ONCOLOGIST. TIME SPENT ON CLINICAL ASSESSMENT, REVIEWING LABS AND IMAGING, DECISION MAKING, AND DOCUMENTATION GREATER THAN 45 MINUTES. - Past Medical Family Social History Past Med/Fam/Surg Hx: No changes since H&P Allergies: Allergies No Known Drug Allergies Allergy (Verified 05/21/21 14:27) - Review of Systems ROS: No change since H&P - Vital Signs and I&O's Vital Signs: Temperature 97.4 F Pulse Rate [Left Radial] 63 Pulse Rate 62 Respiratory Rate 20 Blood Pressure [Left Arm] 115/57 Blood Pressure 137/65 O2 Sat by Pulse Oximetry 96 Intake and Output: Intake & Output 05/21/21 05/22/21 05/23/21 05/24/21 11:59 11:59 11:59 11:59 Intake Total 2065 1633 / 1633 Balance 2065 1633 / 1633 - Physical Exam Oriented: Normal Eyes: Normal Ear: Normal Nose: Normal Throat: Normal Respiratory: Generalized, Diminished Cardiovascular: Normal : Normal Auscultation: Bowel Sounds: Normal Palpation: Normal Tenderness: Normal Skin: Normal Musculoskeletal: Right, Left, Leg, Back:Lumbar, Tender, Sensory Deficit Psychiatric: Normal Mood Description: Calm Affect: Normal Speech Pattern: Clear - Laboratory and Diagnostics Result Diagrams: 05/23/21 05:45 05/23/21 05:45 Labs: Laboratory WBC 11.3 X10^3/uL (3.6-10.0) H 05/23/21 05:45 RBC 2.56 X10^6/uL (4.7-6.0) L 05/23/21 05:45 Hgb 8.2 g/dL (13.5-18.0) L 05/23/21 05:45 Hct 24.4 % (42.0-54.0) L 05/23/21 05:45 MCV 95.3 fL (80.0-100.0) 05/23/21 05:45 MCH 32.0 pg (27.0-34.0) 05/23/21 05:45 MCHC 33.6 g/dL (33.0-35.0) 05/23/21 05:45 RDW 16.4 % (11.6-16.5) 05/23/21 05:45 Plt Count 337 X10^3/uL (150.0-450.0) 05/23/21 05:45 Plt Count Comment Adequate (ADEQUATE) 05/23/21 05:45 MPV 8.1 fL (7.4-11.0) 05/23/21 05:45 Neut % (Auto) 90.3 % (42.0-75.0) H 05/23/21 05:45 Lymph % (Auto) 4.2 % (21.0-51.0) L 05/23/21 05:45 [place] % (Auto) 5.4 % (0.0-13.0) 05/23/21 05:45 Eos % (Auto) 0.0 % (0.9-2.9) L 05/23/21 05:45 Baso % (Auto) 0.1 % (0.2-1.0) L 05/23/21 05:45 Neut # (Auto) 10.2 x10^3/uL (2.2-4.8) H 05/23/21 05:45 Lymph # (Auto) 0.5 X10^3/uL (1.3-2.9) L 05/23/21 05:45 [place] # (Auto) 0.6 x10^3/uL (0.3-0.8) 05/23/21 05:45 Eos # (Auto) 0.0 x10^3/uL (0.0-0.2) 05/23/21 05:45 Baso # (Auto) 0.0 X10^3/uL (0.0-0.1) 05/23/21 05:45 Absolute Nucleated RBC 0.2 /100WBC 05/23/21 05:45 Total Counted 100 05/23/21 05:45 Neutrophils % (Manual) 86 % (39-76) H 05/23/21 05:45 Lymphocytes % (Manual) 5 % (13-43) L 05/23/21 05:45 Monocytes % (Manual) 5 % (4-9) 05/23/21 05:45 Metamyelocytes % 3 05/23/21 05:45 Myelocytes % 1 05/23/21 05:45 Plt Morphology Comment Normal (NORMAL) 05/23/21 05:45 RBC Morphology Normal (NORMAL) 05/23/21 05:45 Sodium 138 mmol/L (136-145) 05/23/21 05:45 Corrected Sodium 139 mmol/L (136-145) 05/23/21 05:45 Potassium 4.5 mmol/L (3.5-5.1) 05/23/21 05:45 Chloride 105 mmol/L (98-107) 05/23/21 05:45 Carbon Dioxide 21.1 mmol/L (21-32) 05/23/21 05:45 BUN 41 mg/dL (7-18) H 05/23/21 05:45 Creatinine 0.88 mg/dL (0.70-1.30) 05/23/21 05:45 Est GFR (MDRD) Af Amer > 60 (>60) 05/23/21 05:45 Est GFR (MDRD) Non-Af > 60 (>60) 05/23/21 05:45 Glucose 142 mg/dL (65-99) H 05/23/21 05:45 Calcium 8.9 mg/dL (8.5-10.1) 05/23/21 05:45 Corrected Calcium 9.9 mg/dL (8.5-10.1) 05/23/21 05:45 Total Bilirubin 0.50 mg/dL (0.2-1.0) 05/23/21 05:45 AST 18 Units/L (15-37) 05/23/21 05:45 ALT 10 Units/L (12-78) L 05/23/21 05:45 Alkaline Phosphatase 46 Units/L (46-116) 05/23/21 05:45 Creatine Kinase 41 Units/L (39-308) 05/21/21 12:27 CK-MB (CK-2) < 1.0 ng/mL (0-4.0) 05/21/21 12:27 CK/CKMB % Calc 2.4 % (<4) 05/21/21 12:27 Troponin I 0.04 ng/mL (0-1.5) 05/21/21 12:27 Total Protein 6.8 g/dL (6.4-8.2) 05/23/21 05:45 Albumin 2.7 g/dL (3.4-5.0) L 05/23/21 05:45 Globulin 4.1 g/dL (2.5-4.5) 05/23/21 05:45 Albumin/Globulin Ratio 0.7 Ratio (1.1-2.1) L 05/23/21 05:45 Lipase 49 Units/L (73-393) L 05/21/21 12:27 SARS-CoV-2 (PCR) Negative (NEGATIVE) 05/21/21 14:25 Influenza Type A (PCR) Negative (NEGATIVE) 05/21/21 14:25 Influenza Type B (PCR) Negative (NEGATIVE) 05/21/21 14:25 RSV (PCR) Negative (NEGATIVE) 05/21/21 14:25 - Plan (1) Metastatic lung carcinoma Status: Acute Qualifiers: Laterality: right Qualified Code(s): C78.01 - Secondary malignant neoplasm of right lung Plan: SOLU-MEDROL 80MG IV Q8H, LEVAQUIN 500MG IV DAILY, PERCOCET 5/325 1.5 TAB PO TID PRN, PULMICORT NEBS BID, AND HIS HOME MEDICATIONS OF ASPIRIN, PLAVIX, NEURONTIN, LOPRESSOR, ZOCOR, FLOMAX, AND EFFEXOR WERE RESUMED. (2) Anemia Status: Acute Qualifiers: Anemia type: unspecified type Qualified Code(s): D64.9 - Anemia, unspecified (3) Lower back pain Status: Acute Qualifiers: Chronicity: acute Back pain laterality: unspecified Sciatica presence: without sciatica Qualified Code(s): M54.5 - Low back pain (4) Lower extremity weakness Status: Acute Qualifiers: Laterality: bilateral Qualified Code(s): R29.898 - Other symptoms and signs involving the musculoskeletal system
[2021-05-23] MEDS: FLOMAX PO SCH (21:19)
[2021-05-23] MEDS: NEURONTIN CAP 300 MG PO SCH (21:19)
[2021-05-23] MEDS: ZOCOR TAB 40 MG PO SCH (21:19)
[2021-05-24] MEDS: PERCOCET TAB 5/325 MG PO PRN (04:56)
[2021-05-24] MEDS: SOLU-Medrol 40 MG VIAL IVP SCH ×2 (05:14→13:32)
[2021-05-24 06:31] LABS: BASOPHILS % (AUTO) 0.2 % (0.2-1.0); HEMATOCRIT 24.2 % (42.0-54.0); HEMOGLOBIN 8.1 g/dL (13.5-18.0); LYMPHOCYTES # (AUTO) 0.4 X10^3/uL (1.3-2.9); LYMPHOCYTES % (AUTO) 3.8 % (21.0-51.0); MEAN CORPUSCULAR HEMOGLOBIN 31.9 pg (27.0-34.0); MEAN CORPUSCULAR HGB CONC 33.3 g/dL (33.0-35.0); MEAN PLATELET VOLUME 8.6 fL (7.4-11.0); MONOCYTES # (AUTO) 0.6 x10^3/uL (0.3-0.8); MONOCYTES % (AUTO) 5.3 % (0.0-13.0); NEUTROPHILS # (AUTO) 10.1 x10^3/uL (2.2-4.8); NEUTROPHILS % (AUTO) 90.7 % (42.0-75.0); PLATELET COUNT 296 X10^3/uL (150.0-450.0); RED BLOOD COUNT 2.52 X10^6/uL (4.7-6.0); RED CELL DISTRIBUTION WIDTH 16.8 % (11.6-16.5); WHITE BLOOD COUNT 11.1 X10^3/uL (3.6-10.0)
[2021-05-24 06:41] LABS: ALANINE AMINOTRANSFERASE 14 Units/L (12-78); ALBUMIN 2.7 g/dL (3.4-5.0); ALKALINE PHOSPHATASE 46 Units/L (46-116); ASPARTATE AMINO TRANSFERASE 16 Units/L (15-37); BLOOD UREA NITROGEN 45 mg/dL (7-18); CALCIUM 8.9 mg/dL (8.5-10.1); CHLORIDE 108 mmol/L (98-107); COR CA(FOR HYPOALB) 9.9 mg/dL (8.5-10.1); COR NA(FOR HYPERGLY) 142 mmol/L (136-145); CREATININE 0.99 mg/dL (0.70-1.30); SODIUM 141 mmol/L (136-145); TOTAL PROTEIN 6.6 g/dL (6.4-8.2); eGFR NON BLACK RACES > 60 (>60)
[2021-05-24 07:29] LABS: PLATELET MORPHOLOGY COMMENT NORMAL (NORMAL)
[2021-05-24 07:33] LABS: SCHISTOCYTES SLIGHT
[2021-05-24] MEDS: EFFEXOR XR 75 MG CAP 24-HR PO SCH (08:33)
[2021-05-24] MEDS: VITAMIN C PO SCH (08:33)
[2021-05-24] MEDS: LOVAZA PO SCH (08:33)
[2021-05-24] MEDS: PLAVIX PO SCH (08:33)
[2021-05-24] MEDS: ASPIRIN 81 MG CHEWTAB PO SCH (08:33)
[2021-05-24] MEDS: LOPRESSOR TAB 25 MG PO SCH (08:34)
[2021-05-24] MEDS: VITAMIN D3 25 mcg (1,000 UNITS) PO SCH (08:34)
[2021-05-24] MEDS: LEVAQUIN PREMIX IV 500 MG 500 MG/100 ML BAG IV SCH (08:34)
[2021-05-24] MEDS: FLONASE NASAL SPRAY ENOSTRIL SCH (08:41)
[2021-05-24] MEDS: PULMICORT NEB TX 0.5 MG NEB SCH (09:45)
[2021-05-24 11:43] VITALS: BP 143/65
== END 2021-05-24 15:30 | disposition home or self-care (01) ==
LOC: MED/SURG 11:40 → ER 11:40 → MED/SURG 16:30
PROVIDERS: ADMIT Internal Medicine; ATTEND Internal Medicine
DX: R06.02 Shortness of breath; E78.2 Mixed hyperlipidemia; R20.0 Anesthesia of skin; Z20.822 Contact with and (suspected) exposure to COVID-19; M54.5 Low back pain; Z72.0 Tobacco use; D64.89 Other specified anemias; C78.01 Secondary malignant neoplasm of right lung; J90 Pleural effusion, not elsewhere classified; I10 Essential (primary) hypertension; R26.89 Other abnormalities of gait and mobility; J44.9 Chronic obstructive pulmonary disease, unspecified